=== PATIENT | male | born 1975 | race Caucasian/White ===

== ENCOUNTER 2019-03-15 20:09 | Emergency (ER) | payer OTHER ==
[2019-03-15 20:36] VITALS: BP 184/85; PULSE 69; RESP 17; TEMP 98.3
[2019-03-15 22:03] LABS: Basophils % (A) 0 %; Eosinophils # (A) 0.5 k/uL (0-0.7); Eosinophils % (A) 11 %; HCT 40.2 % (39.0-53.0); HGB 13.8 gm/dL (13.0-17.5); Lymphocytes # (A) 1.2 k/uL (1.0-4.8); Lymphocytes % (A) 28 %; MCH 30.4 pg (25.0-35.0); MCHC 34.4 g/dL (31.0-37.0); MCV 88.4 fL (80.0-100.0); Mean Platelet Volume 9.5; Monocytes # (A) 0.2 k/uL (0-1.0); Monocytes % (A) 5 %; Neutrophils # (A) 2.2 k/uL (1.3-7.7); Neutrophils % (A) 54 %; RBC 4.54 m/uL (4.30-5.90); RDW 14.4 % (11.5-15.5); WBC 4.2 k/uL (3.8-10.6)
[2019-03-15 22:14] LABS: Appearance,Urine Clear (Clear); Bilirubin,Urine Negative (Negative); Blood,Urine Trace (Negative); Color,Urine Yellow; Glucose,Urine (UA) Negative (Negative); Ketones,Urine Negative (Negative); Leukocyte Esterase,Urine Negative (Negative); Mucus,Urine Rare /hpf; Nitrite,Urine Negative (Negative); PH, Urine 7.5 (5.0-8.0); Protein,Urine 1+ (Negative); RBC,Urine 6 /hpf (0-5); Specific Gravity,Urine 1.018 (1.001-1.035); Squamous Epithelial Cell,Urine <1 /hpf (0-4)
[2019-03-15 22:19] LABS: ALT 35 U/L (21-72); AST 45 U/L (17-59); African American GFR (CKD) >90 (>60 ml/min/1.73 sqM); Albumin 3.6 g/dL (3.5-5.0); Alkaline Phosphatase 103 U/L (38-126); Anion Gap 6 mmol/L; Blood Urea Nitrogen 14 mg/dL (9-20); Calcium 9.3 mg/dL (8.4-10.2); Carbon Dioxide 24 mmol/L (22-30); Chloride 111 mmol/L (98-107); Glucose 163 mg/dL (74-99); Potassium 3.9 mmol/L (3.5-5.1); Sodium 141 mmol/L (137-145); Total Bilirubin 0.8 mg/dL (0.2-1.3); Total Protein 6.7 g/dL (6.3-8.2)
[2019-03-15 22:23] LABS: Platelet Count 74 k/uL (150-450)
--- NOTE | 2019-03-15 22:25 | XR ---
EXAMINATION: XR chest 2V DATE AND TIME: 03/15/2019 9:15 PM CLINICAL INDICATION: PHH; Pain TECHNIQUE: Departmental protocol COMPARISON: None FINDINGS: The overlying soft tissues are prominent. Lungs appear to be clear. The pleural spaces are negative. The cardiac silhouette is moderately enlarged. The remainder of the mediastinal silhouette is unremar kable. The skeletal structures and soft tissues are negative for acute findings. IMPRESSION: 1. NO ACUTE PROCESS. 2. MODERATE CARDIAC SILHOUETTE ENLARGEMENT.
--- NOTE | 2019-03-15 22:59 | ED ---
General Adult HPI - General Chief complaint: Extremity Problem,Nontraumatic Stated complaint: Swelling on Head & Legs Source: patient Mode of arrival: ambulatory Limitations: no limitations - History of Present Illness Initial comments: Roberto is a 44-year-old gentleman with past medical history of alcohol abuse as well as a episode of acute kidney failure for which she was admitted to the hospital in the distant past. Patient presents the emergency department today for evaluation of edema and weight gain. Patient reports that he is currently residing at [facility] facility he has been sober from alcohol for 108 days. Patient reports that over the past 3 weeks he has noticed significant waking, he states that his weight has increased from 288-306. Patient states that he previously was heavier than this but lost 60 pounds and was taken off his antihypertensives including lisinopril and Bumex. Patient reports that over the past couple weeks he's noticed that his legs seem more swollen and he is gaining weight and he believes that he needs to continue taking his Bumex at this time. In addition yesterday patient noted that his forehead seemed to be swollen which he is never experienced before became concerned that this was odd so today he requested come to the ER for evaluation. Patient denies any chest pain palpitations or shortness of breath. Patient reports he is currently not on any medications for blood pressure. Patient does report that he feels his urine has been dark recently despite drinking plenty of fluids. - Related Data Home Medications Medication Instructions Recorded Confirmed Carvedilol [Coreg] 25 mg PO BID 03/15/19 03/15/19 Escitalopram [Lexapro] 10 mg PO HS 03/15/19 03/15/19 Levothyroxine Sodium [Synthroid] 75 mcg PO DAILY 03/15/19 03/15/19 metFORMIN HCL [Glucophage] 500 mg PO BID 03/15/19 03/15/19 Previous Rx's Medication Instructions Recorded Bumetanide [Bumex] 1 mg PO BID #28 tablet 03/15/19 Allergies Allergy/AdvReac Type Severity Reaction Status Date / Time levofloxacin [From Levaquin] AdvReac AKF Verified 03/15/19 23:05 Review of Systems ROS Statement: Those systems with pertinent positive or pertinent negative responses have been documented in the HPI. ROS Other: All systems not noted in ROS Statement are negative. Past Medical History Past Medical History: Diabetes Mellitus Additional Past Medical History / Comment(s): AKF, History of Any Multi-Drug Resistant Organisms: None Reported Past Surgical History: Hernia Repair Additional Past Surgical History / Comment(s): hydroceles, Past Psychological History: No Psychological Hx Reported Smoking Status: Current some day smoker Past Alcohol Use History: Abuse, Daily Past Drug Use History: None Reported General Exam - General Exam Comments Initial Comments: Physical Exam GENERAL: Patient is well-developed and well-nourished. Patient is nontoxic and well-hydrated and is in no distress. HENT: Normocephalic, Atraumatic. Patient is noted to have a shaved head with sunburn to his scalp with surrounding edema including edema that seems to be settling in the forehead EYES: PERRL, EOMI PULMONARY: Unlabored respirations. No audible rales rhonchi or wheezing was noted. CARDIOVASCULAR: RRR No murmurs rubs or gallops ABDOMEN: Obese, Soft and nontender with normal bowel sounds. SKIN: Skin is clear with no lesions or rashes and otherwise unremarkable. : Deferred NEUROLOGIC: Patient is alert and oriented x3. Moving all extremities spontaneously MUSCULOSKELETAL: Normal extremities with adequate strength and full range of motion. No lower extremity swelling or edema. No calf tenderness. 1+ pitting edema in the bilateral lower extremities to the knee PSYCHIATRIC: Normal psychiatric evaluation Limitations: no limitations Course Vital Signs 03/15/19 20:30 Temperature 98.3 F Pulse Rate 69 Respiratory 17 Rate Blood Pressure 184/85 O2 Sat by Pulse 96 Oximetry Medical Decision Making - Medical Decision Making The patient was seen and evaluated history is obtained from her sinuses and obese 44-year-old gentleman with history of hypertension diabetes presenting with lower extremity edema, edema of his forehead dark urine and concern for kidney failure and she is having the past Labs and x-ray were ordered Labs were unremarkable kidney function is within normal limits urine has a few red blood cells but no other abnormalities Physical exam does reveal edema of the forehead which I think is due to sunburn to the scalp, there is 1+ pitting edema of the bilateral lower extremities besides patient is currently not on any diuretic medications which she has been on in the past, at this time I will restart his diuretics. Patient believes he took 2 mg of Bumex twice a day in the past however given that this is a relatively large dose and started him a half that and encouraged him to follow up with his primary care physician. Patient is agreeable to this plan. All questions pertaining care were answered return parameters were discussed patient was discharged home in stable condition. - Lab Data Result diagrams: 03/15/19 21:50 03/15/19 21:50 Lab Results 03/15/19 03/15/19 03/15/19 Range/Units 21:02 21:50 21:50 WBC 4.2 (3.8-10.6) k/uL RBC 4.54 (4.30-5.90) m/uL Hgb 13.8 (13.0-17.5) gm/dL Hct 40.2 (39.0-53.0) % MCV 88.4 (80.0-100.0) fL MCH 30.4 (25.0-35.0) pg MCHC 34.4 (31.0-37.0) g/dL RDW 14.4 (11.5-15.5) % Plt Count 74 L (150-450) k/uL Neutrophils % 54 % Lymphocytes % 28 % Monocytes % 5 % Eosinophils % 11 % Basophils % 0 % Neutrophils # 2.2 (1.3-7.7) k/uL Lymphocytes # 1.2 (1.0-4.8) k/uL Monocytes # 0.2 (0-1.0) k/uL Eosinophils # 0.5 (0-0.7) k/uL Basophils # 0.0 (0-0.2) k/uL Manual Slide Review Performed PT (9.0-12.0) sec INR (<1.2) APTT (22.0-30.0) sec Sodium 141 (137-145) mmol/L Potassium 3.9 (3.5-5.1) mmol/L Chloride 111 H (98-107) mmol/L Carbon Dioxide 24 (22-30) mmol/L Anion Gap 6 mmol/L BUN 14 (9-20) mg/dL Creatinine 0.58 L (0.66-1.25) mg/dL Est GFR (CKD-EPI)AfAm >90 (>60 ml/min/1.73 sqM) Est GFR (CKD-EPI)NonAf >90 (>60 ml/min/1.73 sqM) Glucose 163 H (74-99) mg/dL Calcium 9.3 (8.4-10.2) mg/dL Phosphorus (2.5-4.5) mg/dL Magnesium (1.6-2.3) mg/dL Total Bilirubin 0.8 (0.2-1.3) mg/dL AST 45 (17-59) U/L ALT 35 (21-72) U/L Alkaline Phosphatase 103 (38-126) U/L Creatine Kinase (55-170) U/L NT-Pro-B Natriuret Pep pg/mL Total Protein 6.7 (6.3-8.2) g/dL Albumin 3.6 (3.5-5.0) g/dL Urine Color Yellow Urine Appearance Clear (Clear) Urine pH 7.5 (5.0-8.0) Ur Specific [place] 1.018 (1.001-1.035) Urine Protein 1+ H (Negative) Urine Glucose (UA) Negative (Negative) Urine Ketones Negative (Negative) Urine Blood Trace H (Negative) Urine Nitrite Negative (Negative) Urine Bilirubin Negative (Negative) Urine Urobilinogen 2.0 (<2.0) mg/dL Ur Leukocyte Esterase Negative (Negative) Urine RBC 6 H (0-5) /hpf Urine WBC 1 (0-5) /hpf Ur Squamous Epith Cells <1 (0-4) /hpf Urine Mucus Rare H (None) /hpf 03/15/19 03/15/19 03/15/19 Range/Units 21:50 21:50 21:50 WBC (3.8-10.6) k/uL RBC (4.30-5.90) m/uL Hgb (13.0-17.5) gm/dL Hct (39.0-53.0) % MCV (80.0-100.0) fL MCH (25.0-35.0) pg MCHC (31.0-37.0) g/dL RDW (11.5-15.5) % Plt Count (150-450) k/uL Neutrophils % % Lymphocytes % % Monocytes % % Eosinophils % % Basophils % % Neutrophils # (1.3-7.7) k/uL Lymphocytes # (1.0-4.8) k/uL Monocytes # (0-1.0) k/uL Eosinophils # (0-0.7) k/uL Basophils # (0-0.2) k/uL Manual Slide Review PT 12.0 (9.0-12.0) sec INR 1.2 H (<1.2) APTT 28.3 (22.0-30.0) sec Sodium (137-145) mmol/L Potassium (3.5-5.1) mmol/L Chloride (98-107) mmol/L Carbon Dioxide (22-30) mmol/L Anion Gap mmol/L BUN (9-20) mg/dL Creatinine (0.66-1.25) mg/dL Est GFR (CKD-EPI)AfAm (>60 ml/min/1.73 sqM) Est GFR (CKD-EPI)NonAf (>60 ml/min/1.73 sqM) Glucose (74-99) mg/dL Calcium (8.4-10.2) mg/dL Phosphorus 3.5 (2.5-4.5) mg/dL Magnesium 1.7 (1.6-2.3) mg/dL Total Bilirubin (0.2-1.3) mg/dL AST (17-59) U/L ALT (21-72) U/L Alkaline Phosphatase (38-126) U/L Creatine Kinase 95 (55-170) U/L NT-Pro-B Natriuret Pep 124 pg/mL Total Protein (6.3-8.2) g/dL Albumin (3.5-5.0) g/dL Urine Color Urine Appearance (Clear) Urine pH (5.0-8.0) Ur Specific [place] (1.001-1.035) Urine Protein (Negative) Urine Glucose (UA) (Negative) Urine Ketones (Negative) Urine Blood (Negative) Urine Nitrite (Negative) Urine Bilirubin (Negative) Urine Urobilinogen (<2.0) mg/dL Ur Leukocyte Esterase (Negative) Urine RBC (0-5) /hpf Urine WBC (0-5) /hpf Ur Squamous Epith Cells (0-4) /hpf Urine Mucus (None) /hpf Disposition Clinical Impression: Sunburn, Lower extremity edema Disposition: HOME SELF-CARE Condition: Stable Prescriptions: Bumetanide [Bumex] 1 mg PO BID #28 tablet Is patient prescribed a controlled substance at d/c from ED?: No Referrals: Nonstaff,Physician [REFERRING] - 1-2 days
[2019-03-15 23:21] LABS: Magnesium 1.7 mg/dL (1.6-2.3); Phosphorus 3.5 mg/dL (2.5-4.5)
[2019-03-15 23:29] LABS: INR 1.2 (<1.2); Partial Thromboplastin Time 28.3 sec (22.0-30.0)
== END 2019-03-15 23:48 | disposition home or self-care (01) ==
LOC: EC 20:09
DX: L55.9 Sunburn, unspecified (principal); R60.0 Localized edema; I10 Essential (primary) hypertension; E11.9 Type 2 diabetes mellitus without complications; F17.200 Nicotine dependence, unspecified, uncomplicated; E66.9 Obesity, unspecified; Z68.37 Body mass index [BMI] 37.0-37.9, adult; Z79.890 Hormone replacement therapy; Z79.84 Long term (current) use of oral hypoglycemic drugs; Z79.899 Other long term (current) drug therapy; Z88.1 Allergy status to other antibiotic agents
CPT/HCPCS: 36415; 71046; 80053; 81001; 82550; 83735; 83880; 84100; 85025; 85610; 85730; 99283

== ENCOUNTER 2019-03-22 23:50 | Emergency (ER) | payer OTHER ==
[2019-03-22 23:57] VITALS: RESP 18; TEMP 99.6
[2019-03-23] MEDS ORDERED: guaiFENesin-DM 600/30MG 1 EACH TAB.ER.12H PO STA (03:06)
[2019-03-23] MEDS ORDERED: IPRATROPIUM-ALBUTEROL 3 ML NEB INHALATION STA (03:06)
[2019-03-23] MEDS ORDERED: predniSONE 50 MG TAB PO STA (03:06)
--- NOTE | 2019-03-23 03:07 | XR ---
EXAM: XR Chest, 2 Views CLINICAL HISTORY: ITS.REASON XR Reason: Pain TECHNIQUE: Frontal and lateral views of the chest. COMPARISON: 03/15/19 FINDINGS: Lungs: No consolidation or mass. Pleural space: No effusion. Heart: No cardiomegaly. Mediastinum: Unremarkable. Bones/joints: No acute findings. IMPRESSION: No acute cardiopulmonary process.
--- NOTE | 2019-03-23 03:34 | ED ---
General Adult HPI - General Chief complaint: Upper Respiratory Infection Stated complaint: ANURAG Time Seen by Provider: 03/23/19 02:50 Source: patient, RN notes reviewed, old records reviewed Mode of arrival: ambulatory Limitations: no limitations - History of Present Illness Initial comments: 44-year-old male patient presents to ED with approximately 3 days ago mild nonproductive cough mild shortness of breath while coughing. Patient denies any shortness breath at baseline or chest pain. Patient also reports some sinus congestion. Patient denies any other complaints. Denies any fevers or chills, nausea vomiting or diarrhea. Systemic: Pt denies fatigue, fever/chills, rash. Pt denies weakness, night sweats, weight loss. Neuro: Pt denies headache, visual disturbances, syncope or pre-syncope. HEENT: Pt denies ocular discharge or irritation, otalgia, rhinorrhea, pharyngitis or notable lymphadenopathy. Cardiopulmonary: Pt denies chest pain, heart palpitations, dyspnea on exertion. Abdominal/GI: Pt denies abdominal pain, n/v/d. : Pt denies dysuria, burning w/ urination, frequency/urgency. Denies new onset urinary or bowel incontinence. MSK: Pt denies myalgia, loss of strength or function in extremities. Neuro: Pt denies new onset weakness, paresthesias. - Related Data Home Medications Medication Instructions Recorded Confirmed Carvedilol [Coreg] 25 mg PO BID 03/15/19 03/15/19 Escitalopram [Lexapro] 10 mg PO HS 03/15/19 03/15/19 Levothyroxine Sodium [Synthroid] 75 mcg PO DAILY 03/15/19 03/15/19 metFORMIN HCL [Glucophage] 500 mg PO BID 03/15/19 03/15/19 Previous Rx's Medication Instructions Recorded Bumetanide [Bumex] 1 mg PO BID #28 tablet 03/15/19 Albuterol Inhaler [Ventolin Hfa 1 - 2 puff INHALATION Q4-6H PRN #1 03/23/19 Inhaler] inhaler guaiFENesin-DM 600/30MG [Mucinex 1 each PO Q12HR 5 Days #10 03/23/19 Dm] tab.er.12h predniSONE 50 mg PO DAILY #5 tab 03/23/19 Allergies Allergy/AdvReac Type Severity Reaction Status Date / Time levofloxacin [From Levaquin] AdvReac AKF Verified 03/22/19 23:57 Review of Systems ROS Statement: Those systems with pertinent positive or pertinent negative responses have been documented in the HPI. ROS Other: All systems not noted in ROS Statement are negative. Past Medical History Past Medical History: Diabetes Mellitus Additional Past Medical History / Comment(s): AKF, History of Any Multi-Drug Resistant Organisms: None Reported Past Surgical History: Hernia Repair Additional Past Surgical History / Comment(s): hydroceles, Past Psychological History: No Psychological Hx Reported Smoking Status: Current some day smoker Past Alcohol Use History: Abuse, Daily Past Drug Use History: None Reported General Exam - General Exam Comments Initial Comments: Constitutional: NAD, AOX3, Pt has pleasant affect. HEENT: NC/AT, trachea midline, neck supple, no lymphadenopathy. Posterior pharynx non erythematous, without exudates. External ears appear normal, without discharge. Mucous membranes moist. Eyes PERRLA, EOM intact. There is no scleral icterus. No pallor noted. Cardiopulmonary: RRR, no murmurs, rubs or gallops, no JVD noted. Lungs CTAB in anterior and posterior montaño. No peripheral edema. Abdominal exam: Abdomen soft and non-distended. Abdomen non-tender to palpation in all 4 quadrants. Bowel sounds active in LLQ. No hepatosplenomegaly. No ecchymosis Neuro: CN II-XII grossly intact. No nuchal rigidity. No raccon eyes, no argueta sign, no hemotympanum. No cervical spinal tenderness. MSK: No posterior calf tenderness bilaterally, homans sign negative bilaterally. Posterior tibialis and radial pulse +2 bilaterally. Sensation intact in upper and lower extremities. Full active ROM in upper and lower extremities, 5/5 stregnth. Limitations: no limitations Course Vital Signs 03/22/19 23:55 Temperature 99.6 F Pulse Rate 71 Respiratory 18 Rate Blood Pressure 149/81 O2 Sat by Pulse 95 Oximetry Medical Decision Making - Medical Decision Making 44-year-old male patient presents to ED with approximately 3 days ago mild nonproductive cough mild shortness of breath while coughing. Patient denies any shortness breath at baseline or chest pain. Patient also reports some sinus congestion. Patient denies any other complaints. Denies any fevers or chills, nausea vomiting or diarrhea. Patient vital signs stable, afebrile. Physical exam did not display acute pathology. Chest x-ray displayed no acute process. Patient cash poster DuoNeb breathing treatment, prednisone, Mucinex. Patient discharged with albuterol, steroids for bronchitis. Patient to follow up with primary care provider in 1-2 days. Patient returned here condition worsens. Case discussed with Dr. Mota. Disposition Clinical Impression: Bronchitis Disposition: HOME SELF-CARE Condition: Stable Instructions (If sedation given, give patient instructions): Acute Bronchitis (ED) Additional Instructions: Patient to adhere to previously discussed treatment plan and will take medication(s) as directed. Patient to follow up with PCP in 1-2 days. Patient to return to ED if symptoms do not improve. Follow up with PCP in 1-2 days. Return to ER if condition worsens. Take medication as prescribed, Prescriptions: guaiFENesin-DM 600/30MG [Mucinex Dm] 1 each PO Q12HR 5 Days #10 tab.er.12h predniSONE 50 mg PO DAILY #5 tab Albuterol Inhaler [Ventolin Hfa Inhaler] 1 - 2 puff INHALATION Q4-6H PRN #1 inhaler PRN Reason: Cough Is patient prescribed a controlled substance at d/c from ED?: No Referrals: Thaddeus Nair MD [Primary Care Provider] - 1-2 days
[2019-03-23 04:36] VITALS: BP 153/91; PULSE 66
== END 2019-03-23 04:34 | disposition home or self-care (01) ==
LOC: EC 23:50
DX: J40 Bronchitis, not specified as acute or chronic (principal); E11.9 Type 2 diabetes mellitus without complications; F17.200 Nicotine dependence, unspecified, uncomplicated; Z79.84 Long term (current) use of oral hypoglycemic drugs; Z79.890 Hormone replacement therapy; Z79.899 Other long term (current) drug therapy; Z88.1 Allergy status to other antibiotic agents
CPT/HCPCS: 94640; 71046; 99285; J7512